=== PATIENT | male | born 1970 | race Caucasian/White ===

== ENCOUNTER 2016-09-21 11:55 | Emergency (ER) | payer SELFPAY ==
[2016-09-21 12:23] VITALS: BMI 25.3
[2016-09-21 12:25] VITALS: TEMP 97.6
[2016-09-21 13:08] LABS: AUTOMATED BASOPHIL 0.5 % (0-2); AUTOMATED EOSINOPHIL 1.7 % (0-5); AUTOMATED LYMPH 18.6 % (17-44); AUTOMATED MONOCYTE 7.4 % (3-10); AUTOMATED NEUTROPHIL 71.8 % (45-76); MPV 6.6 fL (7.4-10.4)
[2016-09-21 13:17] LABS: BLOOD UREA NITROGEN 12 MG/DL (9-20); CALCIUM 9.7 MG/DL (8.4-10.2); CALCULATED OSMOLALITY 280 MOs/Kg (270-290); CHLORIDE 100 mEq/L (98-107); GLUCOSE 227 MG/DL (70-99); SODIUM LEVEL 142 mEq/L (137-146); TOTAL PROTEIN 8.7 G/DL (6.3-8.2)
--- NOTE | 2016-09-21 13:53 | EDPRACDOC ---
- General Information Chief Complaint: Male Urogenital Problems Stated Complaint: MED REFILL Time Seen by Provider: 09/21/16 12:30 Information Source: Patient Home Medications: Home Medications Alprazolam [Xanax] 1 mg PO Q8H PRN 09/21/16 Oxycodone HCl [Oxycodone Immediate Release] 10 mg PO Q8H PRN 09/21/16 Sulfamethoxazole/Trimethoprim [Bactrim Ds Tablet] 1 tab PO BID #20 tab 09/21/16 Tramadol HCl 50 mg PO Q6 PRN #14 tablet 09/21/16 Allergies/Adverse Reactions: Allergies Allergy/AdvReac Type Severity Reaction Status Date / Time acetaminophen [From Tylenol] Allergy Mild Unknown/See Verified 09/21/16 12:23 Comments ketorolac tromethamine Allergy Unknown Itching Verified 09/21/16 12:23 [From Toradol] - History of Present Illness HPI: C/o dark urine, dec freq and lower back pain (L>R) x 2 weeks. Denies blood in urine, pain with urination, penile d/c, fever, N/V/D, sob. Med hx = DM. Surgical hx = back and knee Onset: 2 WKS Urinary Pain Location: Reports: Right Flank, Left Flank Symptom Onset: Reports: Gradual Pain Severity: Moderate Pain Quality: Reports: Sharp History of: Reports: None Oral Intake: Decreased Urinary Output: Decreased ED Past Medical History - History Reviewed Yes Nurses notes reviewed and agree except as marked - Patient Medical History Cardiac History: Reports: Hypertension Psychological History: Denies: Depression, Substance Use Disorder Systemic History: Reports: Diabetes Additional Past Medical History: Hep C, CHRONIC PAIN - Social Medical History Smoking Status: Never smoker Social History: Denies: Substance Use Disorder EDM Review of Systems - Review of Systems ROS Negative Except as Marked: Yes All systems reviewed and were negative except as marked Constitutional: Loss of Appetite Genitourinary: Frequency (decreased), Flank Pain (bilat, L>R) Integumentary: Other (multiple abscesses on stomach) - Physical Exam Constitutional: No apparent distress, Alert Oriented to: Time, Person, Place Last recorded Vital Signs: Last Vital Signs Temp 97.6 F 09/21/16 12:23 Pulse 109 09/21/16 12:23 Resp 20 09/21/16 12:23 BP 130/72 09/21/16 12:23 Pulse Ox 96 09/21/16 12:23 Oxygen Pulse Oxygen Saturation 96 O2 Device Oxygen Flow Rate Fraction of Inspired Oxygen ( FIO2) - HEENT Head: Normal Eye Exam: negative: Conjunctival Injection, Scleral Icterus Oropharynx: negative: Drooling TMJ: Normal Nose: No Symptoms Reported Neck: Normal - Respiratory/Cardiovascular Respiratory: Normal - CTA Cardiovascular: Normal - GI Auscultation: Normal Palpation: Normal Tenderness: Non tender - Musculoskeletal Back: CVA Tenderness (bilat) Extremities: Normal - Integumentary Skin: Other (multiple small abscesses on stomach) - Neurologic Mood Description: Normal Thought: Coherent - Results 09/21/16 13:00 09/21/16 13:00 - Diagnostic Imaging Pelvis Image interpreted by: Radiologist EXAM: CT ABDOMEN AND PELVIS WITHOUT CONTRAST TECHNIQUE: Multidetector CT imaging of the abdomen and pelvis was performed following the standard protocol without IV contrast. COMPARISON: 03/11/2012 FINDINGS: Lung bases are free of acute infiltrate or sizable effusion. The liver, spleen, adrenal glands and pancreas are normal in their CT appearance with the exception of multiple calcified splenic granulomas. The gallbladder is well distended demonstrates a single dependent gallstone without complicating factors. The kidneys are well visualized bilaterally and reveal no renal calculi or obstructive changes. The bladder is well distended. No bladder calculi are seen. Mild aortoiliac calcifications are seen without aneurysmal dilatation. The appendix is well visualized and within normal limits. IMPRESSION: Cholelithiasis without complicating factors. Changes of prior granulomatous disease. No acute obstruction or renal calculi are noted. Electronically Signed By: Júnior Espinoza M.D. On: 09/21/2016 14:55 Decision Time to Discharge: 14:25 - Departure Disposition: Home Condition: Stable Final Diagnosis: Flank pain, Delay when starting to pass urine Instructions: Non-pharmacological Pain Management Therapies for Adults (GEN), Abdominal Pain (ED) Education/Counseling Given To: Patient Education/Counseling Given Regarding: Diagnosis, Treatment, Prognosis, Follow Up Referrals: Terry Savage MD [Primary Care Provider] - One Week Prescriptions: Sulfamethoxazole/Trimethoprim [Bactrim Ds Tablet] 1 tab PO BID #20 tab Tramadol HCl 50 mg PO Q6 PRN #14 tablet PRN Reason: Pain Additional Instructions: Follow up with primary care and a urologist for flank pain and delay in starting urinary flow. The name of a urologist has been provided for you. Return to ED for any new or worsening symptoms.
[2016-09-21 14:10] LABS: LEUKOCYTES/URINE NEG (NEGATIVE); NITRITE/URINE NEG (NEGATIVE); RBC/URINE 0-2 (0-2); URINE OCCULT BLOOD NEG (NEG/TRACE); WBC/URINE 0-2 (0-2)
[2016-09-21] MEDS ORDERED: OXYCODONE HCL 5 MG TABLET PO ONE (14:28)
--- NOTE | 2016-09-21 14:57 | DIRPT ---
CLINICAL DATA: Left flank pain for 2 weeks EXAM: CT ABDOMEN AND PELVIS WITHOUT CONTRAST TECHNIQUE: Multidetector CT imaging of the abdomen and pelvis was performed following the standard protocol without IV contrast. COMPARISON: 03/11/2012 FINDINGS: Lung bases are free of acute infiltrate or sizable effusion. The liver, spleen, adrenal glands and pancreas are normal in their CT appearance with the exception of multiple calcified splenic granulomas. The gallbladder is well distended demonstrates a single dependent gallstone without complicating factors. The kidneys are well visualized bilaterally and reveal no renal calculi or obstructive changes. The bladder is well distended. No bladder calculi are seen. Mild aortoiliac calcifications are seen without aneurysmal dilatation. The appendix is well visualized and within normal limits. IMPRESSION: Cholelithiasis without complicating factors. Changes of prior granulomatous disease. No acute obstruction or renal calculi are noted. Electronically Signed By: Júnior Espinoza M.D. On: 09/21/2016 14:55
[2016-09-21 15:33] VITALS: BP 128/74; PULSE 88
== END 2016-09-21 15:32 | disposition home or self-care (01) ==
LOC: ED 11:55
DX: R30.0 Dysuria (principal); R10.9 Unspecified abdominal pain
CPT/HCPCS: 36415; 74176; 80053; 81001; 85025; 99284; J3490